=== PATIENT | male | born 1965 | race Caucasian/White ===

== ENCOUNTER 2016-06-17 10:15 | Outpatient (CLI) ==
[2016-06-17 14:12] LABS: ERYTHROCYTE SEDIMENTATION RATE 5 mm/hr (0-15); ESR INTERNAL QC INTERNAL QC VALID
== END 2016-06-17 10:16 | disposition home or self-care (01) ==
LOC: LAB 10:15
PROVIDERS: ATTEND Family Medicine
DX: M79.1 Myalgia (principal)
CPT/HCPCS: 36415; 82085; 82550; 82553; 85651

== ENCOUNTER 2016-07-21 12:30 | Outpatient (CLI) | payer OTHER ==
[2016-07-21 14:15] LABS: ANION GAP 12.5; CALCIUM 9.3 mg/dL (8.2-10.2); MAGNESIUM 2.3 mg/dL (1.7-2.2); POTASSIUM 3.5 mmol/L (3.5-5.1)
[2016-07-21 14:17] LABS: CREATINE KINASE MB 2.9 ng/ml (0.0-3.6)
== END 2016-07-21 12:31 | disposition home or self-care (01) ==
LOC: LAB 12:30
PROVIDERS: ATTEND Internal Medicine Rheumatology
DX: R25.2 Cramp and spasm (principal)
CPT/HCPCS: 36415; 80048; 82085; 82306; 82550; 82553; 82607; 83615; 83735; 84443

== ENCOUNTER 2016-07-28 15:39 | Outpatient (CLI) | END 2016-07-28 15:40 | disposition home or self-care (01) | LOC: LAB 15:39 | PROVIDERS: ATTEND Internal Medicine Rheumatology | DX: R25.2 Cramp and spasm (principal) | CPT/HCPCS: 36415 ==

== ENCOUNTER 2016-09-06 16:19 | Outpatient (CLI) ==
[2016-09-06 17:47] LABS: BUN/CREATININE RATIO 13.09; CALCIUM 9.1 mg/dL (8.2-10.2); CREATININE 0.84 mg/dL (0.60-1.10)
== END 2016-09-06 16:20 | disposition home or self-care (01) ==
LOC: LAB 16:19
PROVIDERS: ATTEND Internal Medicine Rheumatology
DX: R25.2 Cramp and spasm (principal)
CPT/HCPCS: 36415; 80048; 84439; 84443

== ENCOUNTER 2016-11-10 11:47 | Outpatient (CLI) ==
[2016-11-10 13:23] LABS: ALBUMIN 3.8 g/dL (3.4-5.0); ALBUMIN/GLOBULIN RATIO 1.23; ANION GAP 13.1; BILIRUBIN,TOTAL 0.24 mg/dL (0.00-1.20); BUN/CREATININE RATIO 15.85; CALCIUM 9.2 mg/dL (8.2-10.2); CREATININE 0.82 mg/dL (0.60-1.10); POTASSIUM 4.1 mmol/L (3.5-5.1); TOTAL PROTEIN 6.9 g/dL (6.4-8.2)
== END 2016-11-10 11:48 | disposition home or self-care (01) ==
LOC: LAB 11:47
PROVIDERS: ATTEND Internal Medicine Rheumatology
DX: R25.2 Cramp and spasm (principal)
CPT/HCPCS: 36415; 80053

== ENCOUNTER 2016-12-29 16:49 | Outpatient (CLI) | payer OTHER ==
[2016-12-29 16:54] LABS: BASOPHILS # (AUTO) 0.1 K/uL (0-0.2); EOSINOPHILS # (AUTO) 0.6 K/ul (0.0-0.7); EOSINOPHILS % (AUTO) 6.7 % (0.0-7.0); HEMATOCRIT 44.1 % (42.0-52.0); HEMOGLOBIN 15.5 g/dl (14.0-18.0); IMMATURE GRANULOCYTE % (AUTO) 0.3 % (0.0-5.0); LYMPHOCYTES # (AUTO) 1.7 K/uL (0.60-3.4); LYMPHOCYTES % (AUTO) 19.3 (10.0-50.0); MEAN CORPUSCULAR HEMOGLOBIN 29.9 pg (27.0-31.0); MEAN CORPUSCULAR HGB CONC 35.1 (31.8-35.4); MONOCYTES # (AUTO) 0.9 K/uL (0.4-2.0); MONOCYTES % (AUTO) 9.5 (0-10); NEUTROPHILS # (AUTO) 5.7 K/ul (2.0-6.9); NEUTROPHILS % (AUTO) 63.2; PLATELET COUNT 357 10^3/uL (140-440); RED BLOOD COUNT 5.19 10^6/ul (4.70-6.10); WHITE BLOOD COUNT 9.01 K/ul (4.2-10.2)
[2016-12-29 16:56] LABS: BILIRUBIN,URINE Negative (NEGATIVE); KETONES,URINE Negative (NEGATIVE); LEUKOCYTE ESTERASE ,URINE Negative (NEGATIVE); NITRITE,URINE Negative (NEGATIVE); PROTEIN,URINE Negative (NEGATIVE); URINE, BLOOD Negative (NEGATIVE)
[2016-12-29 17:03] LABS: ADD URINE MICROSCOPIC NO
[2016-12-29 18:11] LABS: ALBUMIN/GLOBULIN RATIO 1.18; BILIRUBIN,TOTAL 0.41 mg/dL (0.00-1.20); BUN/CREATININE RATIO 13.41; CALCIUM 9.8 mg/dL (8.2-10.2); CHOL/HDL RATIO 8.3 (4.5-6.4); CREATININE 0.82 mg/dL (0.60-1.10); TOTAL PROTEIN 7.4 g/dL (6.4-8.2)
[2017-01-01 02:10] LABS: FREE TESTOSTERONE 4.8 pg/mL (7.2-24.0)
== END 2016-12-29 16:50 | disposition home or self-care (01) ==
LOC: LAB 16:49
PROVIDERS: ATTEND Nurse Practitioner Family
DX: N52.9 Male erectile dysfunction, unspecified (principal)
CPT/HCPCS: 36415; 80053; 80061; 81001; 84402; 84439; 84443; 85025

== ENCOUNTER 2017-03-02 10:09 | Outpatient (CLI) | payer OTHER ==
[2017-03-02 11:15] LABS: BASOPHILS # (AUTO) 0.1 K/uL (0-0.2); BASOPHILS % (AUTO) 1.2 % (0.0-3.0); EOSINOPHILS # (AUTO) 0.1 K/ul (0.0-0.7); EOSINOPHILS % (AUTO) 2.1 % (0.0-7.0); HEMOGLOBIN 15.4 g/dl (14.0-18.0); IMMATURE GRANULOCYTE % (AUTO) 0.3 % (0.0-5.0); LYMPHOCYTES # (AUTO) 2.6 K/uL (0.60-3.4); LYMPHOCYTES % (AUTO) 39.3 (10.0-50.0); MEAN CORPUSCULAR HEMOGLOBIN 29.8 pg (27.0-31.0); MEAN CORPUSCULAR VOLUME 85.3 fl (80.0-94.0); MONOCYTES # (AUTO) 0.5 K/uL (0.4-2.0); MONOCYTES % (AUTO) 8.1 (0-10); NEUTROPHILS # (AUTO) 3.2 K/ul (2.0-6.9); PLATELET COUNT 356 10^3/uL (140-440); RED BLOOD COUNT 5.16 10^6/ul (4.70-6.10); WHITE BLOOD COUNT 6.56 K/ul (4.2-10.2)
[2017-03-03 06:20] LABS: TESTOSTERONE 406 ng/dL (264-916)
== END 2017-03-02 10:10 | disposition home or self-care (01) ==
LOC: LAB 10:09
PROVIDERS: ATTEND Urology
DX: E29.1 Testicular hypofunction (principal); N52.9 Male erectile dysfunction, unspecified
CPT/HCPCS: 36415; 84153; 84403; 85025

== ENCOUNTER 2017-06-16 16:03 | Outpatient (CLI) | END 2017-06-16 16:04 | disposition home or self-care (01) | LOC: LAB 16:03 | PROVIDERS: ATTEND Family Medicine | DX: E34.9 Endocrine disorder, unspecified (principal) | CPT/HCPCS: 36415; 84403; 85027 ==

== ENCOUNTER 2017-10-06 11:34 | Outpatient (CLI) | END 2017-10-06 11:35 | disposition home or self-care (01) | LOC: LAB 11:34 | PROVIDERS: ATTEND Urology | DX: E34.9 Endocrine disorder, unspecified (principal) | CPT/HCPCS: 36415; 84403; 85027 ==

== ENCOUNTER 2017-11-03 07:04 | Outpatient (CLI) | END 2017-11-03 07:05 | disposition home or self-care (01) | LOC: LAB 07:04 | PROVIDERS: ATTEND General Practice | DX: I21.02 ST elevation (STEMI) myocardial infarction involving left anterior descending coronary artery (principal); Z79.899 Other long term (current) drug therapy | CPT/HCPCS: 36415; 80053; 80061; 81001; 85025 ==

== ENCOUNTER 2017-11-07 06:37 | Outpatient (CLI) ==
--- NOTE | 2017-11-08 10:21 | STRESSECHO ---
Date of Test: 11/07/17 Ordering Physician: DR. BOUBACAR FAIRBANKS Occupation: [employer] Reason for Exam: FATIGUE, STEMI-2002, CATH 5 YR AGO Smoking History: QUIT 5 YR AGO Height: 66" Weight: 190 LBS Current Medications: LORAZEPAM, OMEPRAZOLE, TESTOSTERONE, CRESTOR, COREG, PLAVIX , INSPRA, LISINOPRIL Resting EKG: SINUS RHYTHM/ POOR R WAVE PROGRESSION Target Heart Rate: 141/167 S-T SEGMENT STAGE MPH/GRADE HEART RATE BPM BLOOD PRESSURE MMHG RHYTHM +/- ELEVATION DEPRESSION SYMPTOMS,COMMENTS AT REST 57 118/88 SR X NONE 1 1.7/10% 86 122/70 SR X NONE 2 2.5/12% 90 126/60 SR X NONE 3 3.4/14% 4 4.2/16% 5 5.0/18% Immediately After 100 132/72 SR X FATIGUE Minutes Post Exercise 5:00 60 130/88 SR X NO COMMENTS Minutes Post Exercise DURATION OF EXERCISE: 8:00 MAXIMUM HEART RATE REACHED: 100 BPM REASON FOR TERMINATION: FATIGUE 98% OXYGEN SATURATION WITH EXERCISE ON ROOM AIR METS: 10.1 INTERPRETATION: 1. NO EVIDENCE OF ISCHEMIA FROM RESTING HEART RATE OF 57 BPM TO 100 BPM WITH EXERCISE 2. METS 10.1 WITH GOOD EXERCISE TOLERANCE 3. NO CHEST PAIN OR DISCOMFORT 4. NO ARRHYTHMIAS 5. BLOOD PRESSURE RESPONSE: NORMAL HYPOKINETIC SEPTAL WALL RESTING AND POST EXERCISE BY ECHO MTDD
--- NOTE | 2017-11-08 10:24 | ECHOSTRESS ---
Date of Exam: 11/07/17 Ordering Physician: DR. BOUBACAR FAIRBANKS Reason for Echo: FATIGUE, STEMI, CATH, STRESS TEST--NO ISCHEMIA M-Mode Normal Adult Results LV Dimensions Normal Adult Results AoV Opening excursions >1.6 LVEDD-base- 3.5-5.8 Ao root dimensions 2.0-3.7 LVESD-base- 3.1-4.6 L. Atrium dimensions 1.9-3.8 Post. Wall thickness 0.8-1.1 IV septum (thickness) 0.7-1.2 Post. Wall excursion 0.72-1.3 Septal motion Systolic motion R. Ventricular cavity 1.5-2.0 LVEF 60% Paradoxical septal wall motion 2-D: HYPOKINETIC SEPTAL WALL--RESTING AND POST EXERCISE M-MODE: MV: AV: TV: PV: CHAMBER SIZE: WALL MOTION: HYPOKINETIC SEPTAL WALL--RESTING AND POST EXERCISE PERICARDIUM: INTERPRETATION: 1. HYPOKINETIC SEPTAL WALL--RESTING AND POST EXERCISE MTDD
== END 2017-11-07 06:38 | disposition home or self-care (01) ==
LOC: CAR 06:37
PROVIDERS: ATTEND General Practice
DX: I21.02 ST elevation (STEMI) myocardial infarction involving left anterior descending coronary artery (principal); R53.83 Other fatigue

== ENCOUNTER 2017-11-25 09:07 | Outpatient (CLI) | END 2017-11-25 09:08 | disposition home or self-care (01) | LOC: FCC-LAB 09:07 | PROVIDERS: ATTEND General Practice | DX: R79.89 Other specified abnormal findings of blood chemistry (principal) | CPT/HCPCS: 36415; 84403 ==

== ENCOUNTER 2018-03-29 09:08 | Outpatient (CLI) | payer OTHER | END 2018-03-29 09:09 | disposition home or self-care (01) | LOC: LAB 09:08 | PROVIDERS: ATTEND Nurse Practitioner Family | DX: R79.89 Other specified abnormal findings of blood chemistry (principal) | CPT/HCPCS: 36415; 80053; 84153; 84403; 85025 ==

== ENCOUNTER 2018-09-11 13:15 | Outpatient (CLI) | payer OTHER | END 2018-09-11 13:16 | disposition home or self-care (01) | LOC: RHC-LAB 13:15 | PROVIDERS: ATTEND General Practice | DX: R53.83 Other fatigue (principal); F32.9 Major depressive disorder, single episode, unspecified | CPT/HCPCS: 36415; 80053; 80061; 84403; 85025 ==

== ENCOUNTER 2018-09-18 16:26 | Outpatient (CLI) | payer OTHER | END 2018-09-18 16:27 | disposition home or self-care (01) | LOC: RHC-LAB 16:26 | PROVIDERS: ATTEND General Practice | DX: M25.449 Effusion, unspecified hand (principal); M25.541 Pain in joints of right hand; M25.542 Pain in joints of left hand; E34.9 Endocrine disorder, unspecified; I25.10 Atherosclerotic heart disease of native coronary artery without angina pectoris | CPT/HCPCS: 36415; 80053; 81001; 84403; 85025; 85651; 86140 ==

== ENCOUNTER 2018-12-22 11:50 | Outpatient (CLI) ==
--- NOTE | 2018-12-22 14:38 | DI ---
EXAM: Left ankle. Three-view HISTORY: Pain in left ankle and joints of left foot COMPARISON: None FINDINGS: No fracture or dislocation. Well marginated ossifications adjacent to the medial malleolu s may be due to old trauma or possibly degenerative. Ankle mortise symmetric. Small plantar and pos terior calcaneal spurs. No focal soft tissue abnormality. IMPERSSION: 1. No fracture or dislocation. 2. Small calcaneal spurs.
--- NOTE | 2018-12-22 14:56 | DI ---
EXAM: Left foot three view HISTORY: Unspecified injury of ankle, initial encounter COMPARISON: None FINDINGS: No fracture or dislocation. Small plantar calcaneal spur. Mild posterior calcaneal enthe sopathy. IMPERSSION: 1. No fracture or dislocation. 2. Mild calcaneal spurring.
== END 2018-12-22 11:51 | disposition home or self-care (01) ==
LOC: RAD 11:50
PROVIDERS: ATTEND Nurse Practitioner Family
DX: M25.572 Pain in left ankle and joints of left foot (principal); S99.912A Unspecified injury of left ankle, initial encounter

== ENCOUNTER 2019-01-02 08:35 | Outpatient (CLI) | END 2019-01-02 08:36 | disposition home or self-care (01) | LOC: RHC-LAB 08:35 | PROVIDERS: ATTEND General Practice | DX: E34.9 Endocrine disorder, unspecified (principal) | CPT/HCPCS: 36415; 80061; 82550; 82553; 84403; 84439; 84484 ==